=== PATIENT | male | born 1950 | race Caucasian/White ===

== ENCOUNTER → 2020-01-26 | Outpatient (CLI) | payer MEDICARE | LOC: COL.RAD 09:16 | DX: M79.644 Pain in right finger(s) (principal); M79.645 Pain in left finger(s) | CPT/HCPCS: J3301; Q9967 ==

== ENCOUNTER 2023-06-10 06:47 | Day surgery (SDC) | payer MEDICARE, OTHER ==
[~2023-06-10] VITALS: Ht 175.3 cm; Wt 97.7 kg
[2023-06-10] MEDS ORDERED: ATARAX 25MG25 MG/TAB PO (07:39)
[2023-06-10] MEDS ORDERED: 00186-0370-20 IH (07:41)
[2023-06-10] MEDS ORDERED: VESICARE 5MG5 MG PO (07:42)
[2023-06-10] MEDS ORDERED: MORPHINE 1515 MG/TAB PO (07:42)
[2023-06-10] MEDS ORDERED: ZANAFLEX 4MG TAB4 MG PO (07:42)
[2023-06-10] MEDS ORDERED: LUNESTA 1MG TAB1 MG PO (07:43)
[2023-06-10] MEDS ORDERED: PRAVACHOL 20MG20 MG PO (07:43)
[2023-06-10] MEDS ORDERED: TRIAMCINOLONE A15 GM TP (07:44)
[2023-06-10] MEDS ORDERED: IPRATROPIUM BROM3 M1 IH (07:45)
[2023-06-10] MEDS ORDERED: BENICAR40 MG PO (07:45)
[2023-06-10] MEDS ORDERED: REVATIO20 MG PO (07:46)
[2023-06-10] MEDS ORDERED: ZYRTEC 10MG10 MG PO (07:46)
[2023-06-10] MEDS ORDERED: NEXIUM 20MG20 MG PO (07:47)
[2023-06-10] MEDS ORDERED: INCRUSE EL62.5 MCG/A IH (07:48)
[2023-06-10 08:56] VITALS: BP 139/57; PULSE 57; TEMP 98.1
[2023-06-10 09:48] VITALS: BP 133/62; PULSE 57; TEMP 97.6
[2023-06-10 10:05] VITALS: BP 131/65; PULSE 52
[2023-06-10 10:20] VITALS: BP 132/64; PULSE 54
[2023-06-10 10:35] VITALS: BP 135/66; PULSE 50
--- NOTE | 2023-06-10 11:22 | NUR ---
[id number]: PT TO RECOVERY BAY 7 FROM OR S/P ESWL SLEEPY, PLACED ON MONITOR, VSS ON RA RECEIVED REPORT AND ASSUMED CARE OF PT FROM IN[facility] AND PANCHO TO BEDSIDE PROVIDED FOOD/FLUID, TOLERATING WELL VOIDED X 3 (600ML PINK + UNMEASURED TOILET VOID) S/P 20MG OF LASIX IN OR PT HAS REMAINED A&O, NAD, VSS ON RA, TOLERATING PO, IS WITHOUT SIGNIFICANT COMPLAINT, WITH STEADY GAIT THRU OUT STAY IV D/C'D. D/C INSTRUCTIONS, FOLLOW UP REVIEWED AND HANDED TO PT. ALL QUESTIONS AND CONCERNS ADDRESSED TO PT SATISFACTION. TAKEN TO EXIT VIA W/C WITH ALL BELONGINGS AND PAPERWORK IN HAND, ASSISTED INTO PASSENGER SEAT OF POV. TO DRIVE HOME.
== END 2023-06-10 11:00 | disposition home or self-care (01) ==
LOC: SDCO 06:47
DX: N20.2 Calculus of kidney with calculus of ureter (principal); R39.15 Urgency of urination; R35.0 Frequency of micturition; Z87.891 Personal history of nicotine dependence
CPT/HCPCS: J0690; J1940; J2405; J2704; J3010; J7120